=== PATIENT | female | born 1970 | race Caucasian/White ===

== ENCOUNTER 2021-02-17 01:43 | Emergency (ER) | payer BC ==
[~2021-02-17] VITALS: Ht 162.6 cm; Wt 53.5 kg
[~2021-02-17 01:43] MED LIST: OXYC1TAB7 PO
[2021-02-17] MEDS ORDERED: CIPR7.5D RIGHT EAR (02:19)
[2021-02-17 02:20] VITALS: BP 128/72
== END 2021-02-17 02:29 | disposition home or self-care (01) ==
LOC: ER 01:43
DX: H60.311 Diffuse otitis externa, right ear (principal); Z88.5 Allergy status to narcotic agent
CPT/HCPCS: 99283